=== PATIENT | female | born 1960 | race Caucasian/White ===

== ENCOUNTER 2019-10-20 01:17 | Emergency (ER) | payer OTHER ==
[2019-10-20] MEDS ORDERED: POLYMYXIN B-TRIMETHOPRIM SULF (10,000-1) OPHTH DROPS 10 ML BTL LEFT EYE STA (01:40)
[2019-10-20] MEDS ORDERED: PROPARACAINE 0.5% OPHTH DROPS 15 ML BTL LEFT EYE STA (01:40)
[2019-10-20] MEDS ORDERED: MORPHINE SULFATE 4 MG/ML SYRINGE IVP STA (01:41)
[2019-10-20] MEDS ORDERED: KETOROLAC 30 MG/ML 1 ML VIAL IVP STA (01:41)
[2019-10-20] MEDS ORDERED: AMPICILLIN-SULBACTAM 3 GM in SODIUM CHLORIDE 0.9% 100 ML IVPB STA (01:41)
[2019-10-20] MEDS ORDERED: DEXAMETHASONE SOD PHOSPHATE 10 MG/ML 1 ML VIAL IV STA (01:41)
[2019-10-20] MEDS ORDERED: SODIUM CHLORIDE 0.9% 1,000 ML IV STA (01:42)
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
[2019-10-20 02:12] LABS: Basophils % (A) 0 %; Eosinophils # (A) 0.2 k/uL (0-0.7); Eosinophils % (A) 2 %; HCT 38.1 % (34.0-46.0); HGB 12.3 gm/dL (11.4-16.0); Lymphocytes # (A) 3.2 k/uL (1.0-4.8); Lymphocytes % (A) 31 %; MCH 29.8 pg (25.0-35.0); MCHC 32.4 g/dL (31.0-37.0); MCV 92.1 fL (80.0-100.0); Mean Platelet Volume 6.6; Monocytes # (A) 0.6 k/uL (0-1.0); Monocytes % (A) 6 %; Neutrophils % (A) 59 %; Platelet Count 433 k/uL (150-450); RBC 4.13 m/uL (3.80-5.40); RDW 13.4 % (11.5-15.5); WBC 10.2 k/uL (3.8-10.6)
[2019-10-20 02:15] VITALS: BP 181/99; PULSE 95; RESP 18; TEMP 98.8
[2019-10-20 02:21] LABS: African American GFR (CKD) >90 (>60 ml/min/1.73 sqM); Anion Gap 9 mmol/L; Blood Urea Nitrogen 20 mg/dL (7-17); Calcium 9.9 mg/dL (8.4-10.2); Carbon Dioxide 26 mmol/L (22-30); Chloride 102 mmol/L (98-107); Glucose 99 mg/dL (74-99); Magnesium 1.7 mg/dL (1.6-2.3); Non-African American GFR(CKD) >90 (>60 ml/min/1.73 sqM); Phosphorus 5.1 mg/dL (2.5-4.5); Sodium 137 mmol/L (137-145)
--- NOTE | 2019-10-20 03:20 | CT ---
EXAMINATION TYPE: CT orbits w con DATE OF EXAM: 10/20/2019 COMPARISON: None HISTORY: left eye swelling CT DLP: 264.7 mGycm Automated exposure control for dose reduction was used. CONTRAST: Performed with IV Contrast, patient injected with 100mL mL of Isovue 300. There is extensive left side periorbital soft tissue swelling. There is no evidence of retro-orbital mass. The globes are symmetric. The orbital margins are intact. There is no evidence of a blowout fra cture. Nasal bone is intact. I see no focal bony destructive process. The zygomatic arches appear nor mal. The maxilla is intact. The temporal bones appear intact. There is normal aeration of the mastoid sinuses. I see no pathologic enhancement. IMPRESSION: Significant left side periorbital preseptal edema. No retro-orbital mass. No fracture seen.
[2019-10-20] MEDS ORDERED: AMOXIC-POT CLAV 875MG STARTER PACK 2 TAB BTL PO STA (04:08)
[2019-10-20] MEDS ORDERED: AMOXIC-POT CLAV 875-125MG 1 EACH TAB PO STA (04:08)
[2019-10-20] MEDS ORDERED: ACET/COD 300 MG/30 MG STARTER PACK 6 TAB BTL PO STA (04:09)
== END 2019-10-20 04:48 | disposition home or self-care (01) ==
LOC: EC 01:17
DX: L03.213 Periorbital cellulitis (principal); F17.200 Nicotine dependence, unspecified, uncomplicated
CPT/HCPCS: 36415; 80048; 83735; 84100; 85025; 87040; 70481; 99284; 96365; 96375 ×3; 96361 ×2; J2270; J1100; J1885; J0295; Q9967

== ENCOUNTER 2019-10-21 03:05 | Inpatient (IN) | payer OTHER ==
[2019-10-21] MEDS ORDERED: DEXAMETHASONE SOD PHOSPHATE 10 MG/ML 1 ML VIAL ONE (04:00)
[2019-10-21] MEDS ORDERED: MORPHINE SULFATE 4 MG/ML SYRINGE ONE (04:00)
[2019-10-21] MEDS ORDERED: KETOROLAC 30 MG/ML 1 ML VIAL ONE (04:00)
[2019-10-21] MEDS ORDERED: AMPICILLIN-SULBACTAM 3 GM in SODIUM CHLORIDE 0.9% 100 ML IVPB ONE (05:15)
[2019-10-21 05:32] LABS: Basophils # (A) 0.1 k/uL (0-0.2); Basophils % (A) 0 %; Eosinophils # (A) 0.1 k/uL (0-0.7); Eosinophils % (A) 1 %; HCT 37.1 % (34.0-46.0); HGB 12.1 gm/dL (11.4-16.0); Lymphocytes # (A) 2.7 k/uL (1.0-4.8); Lymphocytes % (A) 21 %; MCH 29.5 pg (25.0-35.0); MCHC 32.5 g/dL (31.0-37.0); MCV 90.7 fL (80.0-100.0); Mean Platelet Volume 6.6; Monocytes # (A) 0.6 k/uL (0-1.0); Monocytes % (A) 5 %; Neutrophils # (A) 9.2 k/uL (1.3-7.7); Neutrophils % (A) 72 %; Platelet Count 403 k/uL (150-450); RBC 4.09 m/uL (3.80-5.40); RDW 13.5 % (11.5-15.5); WBC 12.8 k/uL (3.8-10.6)
[2019-10-21 05:49] LABS: ALT 22 U/L (4-34); AST 20 U/L (14-36); African American GFR (CKD) >90 (>60 ml/min/1.73 sqM); Albumin 4.5 g/dL (3.5-5.0); Alkaline Phosphatase 84 U/L (38-126); Anion Gap 9 mmol/L; Blood Urea Nitrogen 27 mg/dL (7-17); Carbon Dioxide 26 mmol/L (22-30); Chloride 104 mmol/L (98-107); Glucose 106 mg/dL (74-99); Magnesium 1.9 mg/dL (1.6-2.3); Non-African American GFR(CKD) 79 (>60 ml/min/1.73 sqM); Phosphorus 3.5 mg/dL (2.5-4.5); Potassium 3.6 mmol/L (3.5-5.1); Sodium 139 mmol/L (137-145); Total Bilirubin 0.2 mg/dL (0.2-1.3); Total Protein 7.2 g/dL (6.3-8.2)
[2019-10-21] MEDS ORDERED: AMPICILLIN-SULBACTAM 3 GM in SODIUM CHLORIDE 0.9% 100 ML IVPB SCH ×2 (08:00→16:00)
[2019-10-21] MEDS ORDERED: CYCLOBENZAPRINE 10 MG TAB PO PRN (09:58)
[2019-10-21] MEDS ORDERED: IBUPROFEN 400 MG TAB PO PRN (09:58)
[2019-10-21] MEDS ORDERED: VANCOMYCIN IV PER PHARMACY 1 EACH MISC MISCELLANE PRN (09:59)
[2019-10-21] MEDS: amLODIPine 5 MG TAB PO SCH (11:11)
[2019-10-21] MEDS ORDERED: buPROPion XL 300 MG TAB.ER.24H PO STA (11:14)
[2019-10-21] MEDS: METHYLPHENIDATE HCL 10 MG TAB PO SCH ×2 (11:53→16:49)
[2019-10-21] MEDS: VANCOMYCIN 1,500 MG in SODIUM CHLORIDE 0.9% 250 ML IVPB SCH (11:53)
--- NOTE | 2019-10-21 13:19 | P.HPIM ---
History of Present Illness 59-year-old female came in with complaints of edema of the left side was seen in the ER in ER yesterday and was discharged on Augmentin comes back again with the same complaints of worsening edema and redness in the left by because of which patient was admitted , patient had a computed tomography scan of the orbits which did not show any post-septal extension patient has preseptal edema. Patient was started on Vanco mycin patient denied any fever chills. Patient had history of brain lesions which are being evaluated as an outpatient with the MRIs. Patient is also complaining of retrograde amnesia, she lives by herself and she believes she is pretty much being dependent on IADLs Review of Systems REVIEW OF SYSTEMS: CONSTITUTIONAL: No fever, no malaise, no fatigue. HEENT: No recent visual problems or hearing problems. Denied any sore throat. CARDIOVASCULAR: No chest pain, orthopnea, PND, no palpitations, no syncope. PULMONARY: No shortness of breath, no cough, no hemoptysis. GASTROINTESTINAL: No diarrhea, no nausea, no vomiting, no abdominal pain. NEUROLOGICAL: No headaches, no weakness, no numbness. HEMATOLOGICAL: Denies any bleeding or petechiae. GENITOURINARY: Denies any burning micturition, frequency, or urgency. MUSCULOSKELETAL/RHEUMATOLOGICAL: Denies any joint pain, swelling, or any muscle pain. ENDOCRINE: Denies any polyuria or polydipsia. The rest of the 14-point review of systems is negative. Past Medical History Past Medical History: Coronary Artery Disease (CAD), Hypertension Additional Past Medical History / Comment(s): depression, brain lesions History of Any Multi-Drug Resistant Organisms: None Reported Past Surgical History: Hysterectomy, Orthopedic Surgery Past Psychological History: Depression Smoking Status: Current every day smoker Past Alcohol Use History: None Reported Past Drug Use History: None Reported - Past Family History Father Family Medical History: AICD/Pacemaker, Cancer, Coronary Artery Disease (CAD), Diabetes Mellitus Additional Family Medical History / Comment(s): kidney cancer. passed at 76 years old Mother Family Medical History: Cancer, Coronary Artery Disease (CAD) Additional Family Medical History / Comment(s): liver cancer. passed at 84. Medications and Allergies Home Medications Medication Instructions Recorded Confirmed Type Amoxic-Pot Clav 875-125Mg 1 tab PO Q12HR #20 tablet 10/20/19 10/21/19 Rx [Augmentin 235125] Amantadine HCl [Amantadine] 100 mg PO BID 10/21/19 10/21/19 History Zrdjlib-Iawm-Wmxi [id number] 2 tab PO BID 10/21/19 10/21/19 History [Excedrin] Bacitracin/Polymyxin B Sulfate 1 - 2 drop LEFT EYE QID 10/21/19 10/21/19 History [Polysporin Ointment] Cyclobenzaprine [Flexeril] 10 mg PO TID PRN 10/21/19 10/21/19 History DULoxetine HCL [Cymbalta] 120 mg PO HS 10/21/19 10/21/19 History FLUoxetine HCL [PROzac] 10 mg PO DAILY 10/21/19 10/21/19 History Ibuprofen 400 mg PO BID PRN 10/21/19 10/21/19 History Methylphenidate HCl 40 mg PO BID 10/21/19 10/21/19 History Omeprazole [PriLOSEC] 20 mg PO DAILY 10/21/19 10/21/19 History amLODIPine [Norvasc] 5 mg PO DAILY 10/21/19 10/21/19 History buPROPion XL [Wellbutrin Xl] 300 mg PO DAILY 10/21/19 10/21/19 History Allergies Allergy/AdvReac Type Severity Reaction Status Date / Time No Known Allergies Allergy Verified 10/21/19 08:58 Physical Exam Vitals: Vital Signs Temp Pulse Resp BP Pulse Ox 10/21/19 07:50 97.9 F 89 18 171/95 96 Intake and Output 10/20/19 10/21/19 10/21/19 22:59 06:59 14:59 Intake Total 220 Balance 220 Intake: Oral 220 Other: Weight 88.6 kg PHYSICAL EXAMINATION: GENERAL: The patient is alert and oriented x3, not in any acute distress. Well developed, well nourished. HEENT: Pupils are round and equally reacting to light. EOMI. No scleral icterus. No conjunctival pallor. Normocephalic, atraumatic. No pharyngeal erythema. No thyromegaly. Left the eye is swollen with a swollen conjunctiva and possible mild conjunctival and subconjunctival hemorrhage significant redness around the eye with local is of temperature. CARDIOVASCULAR: S1 and S2 present. No murmurs, rubs, or gallops. PULMONARY: Chest is clear to auscultation, no wheezing or crackles. ABDOMEN: Soft, nontender, nondistended, normoactive bowel sounds. No palpable organomegaly. MUSCULOSKELETAL: No joint swelling or deformity. EXTREMITIES: No cyanosis, clubbing, or pedal edema. NEUROLOGICAL: Gross neurological examination did not reveal any focal deficits. SKIN: No rashes. Results CBC & Chem 7: 10/21/19 04:00 10/21/19 04:00 Labs: Abnormal Lab Results - Last 24 Hours (Table) 10/21/19 10/21/19 Range/Units 04:00 04:00 WBC 12.8 H (3.8-10.6) k/uL Neutrophils # 9.2 H (1.3-7.7) k/uL BUN 27 H (7-17) mg/dL Glucose 106 H (74-99) mg/dL Thrombosis Risk Factor Assmnt - Choose All That Apply Each Factor Represents 1 point: Age 41-60 years, Obesity (BMI >25) Other Risk Factors: No Other congenital or acquired thrombophilia - If yes, enter type in comment: No Thrombosis Risk Factor Assessment Total Risk Factor Score: 2 Thrombosis Risk Factor Assessment Level: Low Risk Assessment and Plan Plan: -Orbital cellulitis preseptal still lightest: patient will be started on vancomycin. Unasyn will be discontinued. Infectious disease will be consulted patient does have some pain with the movement of the left eye although CAT scan did not show any post-septal extension. -Symptoms of retrograde amnesia: Speech therapy will be consulted for mini cog test. -Coronary artery disease -TIAs as per the patient in the past -Hypertension -Depression for this patient will be resumed on her home medications -Nicotine abuse: Counseling was provided -DVT prophylaxis early ambulation
[2019-10-21] MEDS: KETOROLAC 30 MG/ML 1 ML VIAL IVP PRN ×2 (13:31→21:27)
[2019-10-21] MEDS: ASPIRIN-ACET-CAFF 250-250-65MG 1 EACH TAB PO PRN (19:09)
[2019-10-21] MEDS ORDERED: ASPIRIN-ACET-CAFF 250-250-65MG 1 EACH TAB PO SCH (21:00)
[2019-10-21] MEDS: DULoxetine HCL 60 MG CAPSULE.DR PO SCH (21:28)
[2019-10-21] MEDS: AMANTADINE HCL 100 MG CAP PO SCH (21:28)
--- NOTE | 2019-10-21 22:17 | P.CONS ---
History of Present Illness - Reason for Consult Consult date: 10/21/19 left preseptal cellulitis Requesting physician: Petra Mohan - Chief Complaint left eye pain and redness x 3 days - History of Present Illness Patient is a 59-year female presenting to the ER at [facility] yesterday with chief complaints of left eye pain swelling and redness for 2 days patient denies having history of any trauma the left leg becoming swollen and red and has gradually progressed patient apparently has been taking doxycycline outpatient setting without any improvement denies high-grade fever or chills her main symptom needs to be pain has been sharp dull aching almost 7- 8 out of 10 with some relief with the pain medication that she received the ER patient was evaluated by the ER physician she did have a CT of the orbits which was significant left-sided periorbital preseptal edema no retro-orbital mass and no fracture seen patient was discharged home on oral Augmentin with the patient presented back with worsening of her symptom and no relief with oral Augmentin patient has been admitted to hospital she was started on vancomycin and Unasyn infectious was consulted for further management of antibiotic therapy patient admission so far has been afebrile she did have a white count of 12.8 with a left shift creatinine has been normal blood cultures obtained which are currently pending. Patient denies significant blurriness of her vision or pain on movement of the eyeball. Review of Systems Positive point has been mentioned in HPI rest of the systems are negative Past Medical History Past Medical History: Coronary Artery Disease (CAD), Hypertension Additional Past Medical History / Comment(s): depression, brain lesions History of Any Multi-Drug Resistant Organisms: None Reported Past Surgical History: Hysterectomy, Orthopedic Surgery Past Psychological History: Depression Smoking Status: Current every day smoker Past Alcohol Use History: None Reported Past Drug Use History: None Reported - Past Family History Father Family Medical History: AICD/Pacemaker, Cancer, Coronary Artery Disease (CAD), Diabetes Mellitus Additional Family Medical History / Comment(s): kidney cancer. passed at 76 years old Mother Family Medical History: Cancer, Coronary Artery Disease (CAD) Additional Family Medical History / Comment(s): liver cancer. passed at 84. Medications and Allergies Home Medications Medication Instructions Recorded Confirmed Type Amoxic-Pot Clav 875-125Mg 1 tab PO Q12HR #20 tablet 10/20/19 10/21/19 Rx [Augmentin 875125] Amantadine HCl [Amantadine] 100 mg PO BID 10/21/19 10/21/19 History Wuyrrvh-Ntfc-Vkvl [id number] 2 tab PO BID 10/21/19 10/21/19 History [Excedrin] Bacitracin/Polymyxin B Sulfate 1 - 2 drop LEFT EYE QID 10/21/19 10/21/19 History [Polysporin Ointment] Cyclobenzaprine [Flexeril] 10 mg PO TID PRN 10/21/19 10/21/19 History DULoxetine HCL [Cymbalta] 120 mg PO HS 10/21/19 10/21/19 History FLUoxetine HCL [PROzac] 10 mg PO DAILY 10/21/19 10/21/19 History Ibuprofen 400 mg PO BID PRN 10/21/19 10/21/19 History Methylphenidate HCl 40 mg PO BID 10/21/19 10/21/19 History Omeprazole [PriLOSEC] 20 mg PO DAILY 10/21/19 10/21/19 History amLODIPine [Norvasc] 5 mg PO DAILY 10/21/19 10/21/19 History buPROPion XL [Wellbutrin Xl] 300 mg PO DAILY 10/21/19 10/21/19 History Allergies Allergy/AdvReac Type Severity Reaction Status Date / Time No Known Allergies Allergy Verified 10/21/19 08:58 Physical Exam Vitals: Vital Signs Temp Pulse Resp BP Pulse Ox 10/21/19 15:17 98.2 F 95 14 168/92 97 10/21/19 07:50 97.9 F 89 18 171/95 96 Intake and Output 10/21/19 10/21/19 10/21/19 06:59 14:59 22:59 Intake Total 320 Balance 320 Intake: Oral 320 Other: # Voids 2 Weight 88.6 kg GENERAL DESCRIPTION: Middle-aged female lying in bed, no distress. No tachypnea or accessory muscle of respiration use. HEENT: Left eye did have swelling with periorbital redness and conjunctival redness. Oral mucous membrane is dry. NECK: Trachea central, no thyromegaly. LUNGS: Unlabored breathing. Clear to auscultation anteriorly. No wheeze or crackle. HEART: S1, S2, regular rate and rhythm. ABDOMEN: Soft, no tenderness , guarding or rigidity EXTREMITIES: No edema of feet. SKIN: No rash, no masses palpable. NEUROLOGICAL: The patient is awake, alert, oriented x3, mood and affect normal. Results CBC & Chem 7: 10/21/19 04:00 10/21/19 04:00 Labs: Abnormal Lab Results - Last 24 Hours (Table) 10/21/19 10/21/19 Range/Units 04:00 04:00 WBC 12.8 H (3.8-10.6) k/uL Neutrophils # 9.2 H (1.3-7.7) k/uL BUN 27 H (7-17) mg/dL Glucose 106 H (74-99) mg/dL Assessment and Plan Assessment: patient presented hospital with left periorbital pain swelling redness in this patient who did have a CT suggestive of preseptal cellulitis with no retro- orbital extension likely from gram-positive skin paulo such as staph and strep failing outpatient oral doxycycline as well as Augmentin therapy (1) Preseptal cellulitis of left eye Current Visit: No Status: Acute Code(s): L03.213 - PERIORBITAL CELLULITIS SNOMED Code(s): 495845694 Plan: 1-vancomycin pharmacy to dose her with a target trough of 15 while watching her kidney function and Vanco trough closely. 2-discontinue Unasyn 3-await ophthalmology evaluation We will follow on clinical condition and cultures to further adjust medication if needed Thank you for this consultation we will follow the patient along with you Time with Patient: Greater than 30
[2019-10-22] MEDS: VANCOMYCIN 1,500 MG in SODIUM CHLORIDE 0.9% 250 ML IVPB SCH ×3 (00:06→22:47)
[2019-10-22] MEDS: KETOROLAC 30 MG/ML 1 ML VIAL IVP PRN ×4 (04:42→23:25)
[2019-10-22] MEDS: METHYLPHENIDATE HCL 10 MG TAB PO SCH ×2 (05:15→14:31)
[2019-10-22] MEDS: AMANTADINE HCL 100 MG CAP PO SCH ×2 (07:59→20:49)
[2019-10-22] MEDS: buPROPion XL 300 MG TAB.ER.24H PO SCH (07:59)
[2019-10-22] MEDS: PANTOPRAZOLE 40 MG TABLET PO SCH (07:59)
[2019-10-22] MEDS: amLODIPine 5 MG TAB PO SCH (07:59)
[2019-10-22 08:00] LABS: African American GFR (CKD) >90 (>60 ml/min/1.73 sqM); Non-African American GFR(CKD) >90 (>60 ml/min/1.73 sqM)
--- NOTE | 2019-10-22 10:54 | CONS ---
CONSULTATION DATE OF SERVICE: 10/22/2019. TIME: 8:30 am HISTORY: This is a 59-year-old white female who presented to the hospital initially complaining of swelling of the left eye with pain and redness for the previous 2 days. The patient was previously taking doxycycline without any improvement of her eye swelling. The patient was seen in the emergency room and received a CT scan of the orbits, which showed the presence of left-sided preseptal cellulitis and preseptal edema; however, no retrobulbar inflammation was noted and the CT scan of the orbits was otherwise negative. The patient was sent home with a prescription of oral Augmentin and eventually presented back with worsening symptoms and complained of receiving no relief from her Augmentin. She was ultimately admitted to the hospital and started on IV vancomycin and Unasyn. The patient states that since admission her eye swelling has subsided significantly and she is looking forward to discharge soon. PHYSICAL EXAM: Visual acuity without correction measured 20/40 OU. The pupils were equal, reactive to light. There was no afferent defect. Extraocular movements were full in all gaze positions. There was no evidence of diplopia in any gaze position. On penlight exam, the left periorbital region exhibited moderate swelling and erythema. The conjunctiva on the left side showed 3+ injection with chemosis evident as well. Both corneas were clear. The anterior chambers were quiet and the remainder of the ophthalmic exam was otherwise unremarkable. 1. Preseptal cellulitis, left side. This patient appears to be improving significantly since the IV antibiotics have started and there is no evidence of retrobulbar involvement of this infection at this time. I would continue her on the IV and eventual discharge on oral according to Infectious Disease. I will be happy to see her in my office upon discharge from the facility. MMODL / IJN: [id number] /
--- NOTE | 2019-10-22 14:10 | PN ---
PROGRESS NOTE DATE OF SERVICE: 10/22/2019 REASON FOR FOLLOWUP: Left preseptal cellulitis. INTERVAL HISTORY: The patient is currently afebrile. She is feeling slightly better. The left periorbital pain and swelling has improved. No chest pain, shortness of breath or cough. No abdominal pain or diarrhea. PHYSICAL EXAMINATION: Blood pressure 152/82 with a pulse of 73, temperature 98.2. She is 93% on room air. General description is a middle-aged female up in the bed in no distress. HEENT: Examination left periorbital swelling, redness improved. LUNGS: Unlabored breathing, clear to auscultation anteriorly. HEART: S1, S2. Regular rate and rhythm. ABDOMEN: Soft, no tenderness. LABS: Creatinine 0.63. Blood culture has been negative. DIAGNOSTIC IMPRESSION AND PLAN: Patient with left preseptal cellulitis, possibly related to gram-positive skin paulo such as MRSA, failing outpatient oral Augmentin and doxycycline. Will keep the patient on IV vancomycin for another 24-48 hours, once clinically improved, we may be able to transition to oral doxycycline. Continue supportive care. MMODL / IJN: [id number] /
--- NOTE | 2019-10-22 14:17 | P.PN ---
Subjective Progress Note Date: 10/22/19 Principal diagnosis: 59-year-old female came in with complaints of edema of the left side was seen in the ER in ER yesterday and was discharged on Augmentin comes back again with the same complaints of worsening edema and redness in the left by because of which patient was admitted , patient had a computed tomography scan of the orbits which did not show any post-septal extension patient has preseptal edema. Patient was started on Vancomycin patient denied any fever chills. Patient had history of brain lesions which are being evaluated as an outpatient with the MRIs. Patient is also complaining of retrograde amnesia, she lives by herself and she believes she is pretty much being dependent on IADLs 10/22/2019 Patient is seen and evaluated in follow-up today sleeping but easily arousable. Patient was seen and evaluated by ophthalmology recommending continued antibi otics per infectious disease recommendations and outpatient follow-up in his office once discharged. Disease is following and patient remains on vancomycin at this time. No acute overnight issues. Currently patient denies any chest pain, shortness of breath, or palpitations. Is afebrile. No reports of nausea or vomiting and patient is tolerating diet. Edema and erythema of the left orbital area has improved. She denies any visual disturbance at this time. Objective - Vital Signs Vital signs: Vital Signs Temp 98.2 F 10/22/19 07:05 Pulse 76 10/22/19 08:00 Resp 16 10/22/19 08:00 BP 152/82 10/22/19 07:05 Pulse Ox 93 L 10/22/19 07:05 Intake & Output 10/21/19 10/22/19 10/22/19 18:59 06:59 18:59 Intake Total 457 Balance 457 Weight 88.6 kg Intake: Oral 457 Other: Voiding Method Toilet Toilet # Voids 2 - Exam GENERAL: The patient is alert and oriented x3, not in any acute distress. Well developed, well nourished. HEENT: Pupils are round and equally reacting to light. EOMI. No scleral icterus. No conjunctival pallor. Normocephalic, atraumatic. No pharyngeal erythema. No thyromegaly. Left the eye is swollen with a swollen conjunctiva and possible mild conjunctival and subconjunctival hemorrhage significant redness around the eye with localization of temperature. Erythema and swelling of the left orbital area has improved from yesterday. CARDIOVASCULAR: S1 and S2 present. No murmurs, rubs, or gallops. PULMONARY: Chest is clear to auscultation, no wheezing or crackles. ABDOMEN: Soft, nontender, nondistended, normoactive bowel sounds. No palpable organomegaly. MUSCULOSKELETAL: No joint swelling or deformity. EXTREMITIES: No cyanosis, clubbing, or pedal edema. NEUROLOGICAL: Gross neurological examination did not reveal any focal deficits. SKIN: No rashes. - Labs CBC & Chem 7: 10/21/19 04:00 10/22/19 06:40 Labs: Microbiology - Last 24 Hours (Table) 10/21/19 04:00 Blood Culture - Preliminary Blood No Growth after 24 hours Assessment and Plan Assessment: -Orbital cellulitis preseptal: Patient remains on vancomycin. Infectious disease following. Blood cultures remain negative thus far. Dr. Bianchi evaluated the patient recommending outpatient follow-up in his office once discharged -Symptoms of retrograde amnesia: Speech therapy will be consulted for mini cog test. Patient was seen and evaluated by speech therapy and scored a 30 out of 30 on the mini check testing -Coronary artery disease -TIAs as per the patient in the past -Hypertension -Depression for this patient will be resumed on her home medications -Nicotine abuse: Counseling was provided -DVT prophylaxis early ambulation
[2019-10-22] MEDS: DULoxetine HCL 60 MG CAPSULE.DR PO SCH (20:49)
[2019-10-23] MEDS: METHYLPHENIDATE HCL 10 MG TAB PO SCH ×2 (05:59→14:02)
[2019-10-23] MEDS: AMANTADINE HCL 100 MG CAP PO SCH ×2 (08:30→21:29)
[2019-10-23] MEDS: PANTOPRAZOLE 40 MG TABLET PO SCH (08:30)
[2019-10-23] MEDS: buPROPion XL 300 MG TAB.ER.24H PO SCH (08:30)
[2019-10-23] MEDS: KETOROLAC 30 MG/ML 1 ML VIAL IVP PRN ×3 (08:30→23:17)
[2019-10-23] MEDS: amLODIPine 5 MG TAB PO SCH (08:30)
[2019-10-23] MEDS ORDERED: VANCOMYCIN TROUGH DUE 1 EACH MISC MISCELLANE ONE (11:00)
[2019-10-23 11:33] LABS: African American GFR (CKD) >90 (>60 ml/min/1.73 sqM); Non-African American GFR(CKD) >90 (>60 ml/min/1.73 sqM)
[2019-10-23] MEDS: VANCOMYCIN 1,500 MG in SODIUM CHLORIDE 0.9% 250 ML IVPB SCH ×2 (12:01→23:19)
--- NOTE | 2019-10-23 13:50 | P.PN ---
Subjective 59-year-old female came in with complaints of edema of the left side was seen in the ER in ER yesterday and was discharged on Augmentin comes back again with the same complaints of worsening edema and redness in the left by because of which patient was admitted , patient had a computed tomography scan of the orbits which did not show any post-septal extension patient has preseptal edema. Patient was started on Vancomycin patient denied any fever chills. Patient had history of brain lesions which are being evaluated as an outpatient with the MRIs. Patient is also complaining of retrograde amnesia, she lives by herself and she believes she is pretty much being dependent on IADLs 10/22/2019 Patient is seen and evaluated in follow-up today sleeping but easily arousable. Patient was seen and evaluated by ophthalmology recommending continued antibiotics per infectious disease recommendations and outpatient follow-up in his office once discharged. Disease is following and patient remains on vancomycin at this time. No acute overnight issues. Currently patient denies any chest pain, shortness of breath, or palpitations. Is afebrile. No reports of nausea or vomiting and patient is tolerating diet. Edema and erythema of the left orbital area has improved. She denies any visual disturbance at this time. 10/23/2019 Patient was admitted for left preseptal cellulitis around her left eye, her infection is improving with less redness, she still have some fullness in the upper eyelids and draped I. No blurred vision. Patient has been evaluated by roll winder and infectious disease or currently she is on IV vancomycin No other new complaints, patient feels comfortable her infection is coming down however she was stressed in the hospital for now. She is hemodynamically stable and creatinine is within normal limits. Objective - Vital Signs Vital signs: Vital Signs Temp 98.3 F 10/23/19 08:25 Pulse 79 10/23/19 08:25 Resp 16 10/23/19 08:25 BP 145/88 10/23/19 08:25 Pulse Ox 98 10/23/19 08:25 Intake & Output 10/22/19 10/23/19 10/23/19 18:59 06:59 18:59 Intake Total 450 296 Output Total 1200 Balance -1200 450 296 Intake: Oral 450 296 Output: Stool 1200 Other: Voiding Method Toilet # Voids 2 2 - Exam GENERAL: The patient is alert and oriented x3, not in any acute distress. Well developed, well nourished. -HEENT: Pupils are round and equally reacting to light. EOMI. No scleral icterus. No conjunctival pallor. Normocephalic, atraumatic. No pharyngeal erythema. No thyromegaly. Left the eye is swollen with a swollen conjunctiva and possible mild conjunctival and subconjunctival hemorrhage significant redness around the eye with localization of temperature. Erythema and swelling of the left orbital area, improving CARDIOVASCULAR: S1 and S2 present. No murmurs, rubs, or gallops. PULMONARY: Chest is clear to auscultation, no wheezing or crackles. ABDOMEN: Soft, nontender, nondistended, normoactive bowel sounds. No palpable organomegaly. MUSCULOSKELETAL: No joint swelling or deformity. EXTREMITIES: No cyanosis, clubbing, or pedal edema. NEUROLOGICAL: Gross neurological examination did not reveal any focal deficits. SKIN: No rashes. - Labs CBC & Chem 7: 10/21/19 04:00 10/23/19 11:08 Labs: Microbiology - Last 24 Hours (Table) 10/21/19 04:00 Blood Culture - Preliminary Blood No Growth after 48 hours 10/22/19 14:00 Gram Stain - Preliminary Eye - Left Wound Culture - Preliminary Assessment and Plan Assessment: -Orbital cellulitis preseptal: Patient remains on vancomycin. Infectious disea se following. Blood cultures remain negative thus far. Dr. Bianchi evaluated the patient recommending outpatient follow-up in his office once discharged -Coronary artery disease -TIAs as per the patient in the past -Hypertension -Depression for this patient will be resumed on her home medications -Nicotine abuse: Counseling was provided -DVT prophylaxis early ambulation
--- NOTE | 2019-10-23 17:38 | PN ---
PROGRESS NOTE DATE OF SERVICE: 10/23/2019 REASON FOR FOLLOWUP: Left preseptal cellulitis. INTERVAL HISTORY: The patient is currently afebrile. The patient has some purulent drainage from the left lateral eyebrow area which has been cultured. Overall pain and discomfort has improved. Denies any chest pain or cough. No abdominal pain or diarrhea. PHYSICAL EXAMINATION: Blood pressure 145/88 with a pulse of 79, temperature 98.3. She is 98% on room air. General description: The patient is a middle-aged female up in the bed in no distress. HEENT examination: Left periorbital swelling, has slightly decreased, no drainage. LUNGS unlabored breathing. Clear to auscultation anteriorly. HEART S1, S2. Regular rate and rhythm. ABDOMEN: Soft. No tenderness. LABS: Creatinine is normal. Vancomycin trough slightly on the low side. Cultures currently pending. DIAGNOSTIC IMPRESSION AND PLAN: Patient with left preseptal cellulitis with some purulent drainage yesterday that has been cultured, we will wait for them to finalize and repeat blood work tomorrow. Continue the vancomycin, dose to be adjusted up to keep the trough around 15 and monitor clinical course closely. MMODL / IJN: [id number] /
[2019-10-23] MEDS: DULoxetine HCL 60 MG CAPSULE.DR PO SCH (21:27)
[2019-10-24] MEDS: METHYLPHENIDATE HCL 10 MG TAB PO SCH ×2 (05:41→13:56)
[2019-10-24] MEDS: PANTOPRAZOLE 40 MG TABLET PO SCH (05:42)
[2019-10-24 07:51] LABS: Basophils # (A) 0.1 k/uL (0-0.2); Basophils % (A) 1 %; Eosinophils # (A) 0.2 k/uL (0-0.7); Eosinophils % (A) 3 %; HCT 38.9 % (34.0-46.0); HGB 12.6 gm/dL (11.4-16.0); Lymphocytes # (A) 3.2 k/uL (1.0-4.8); Lymphocytes % (A) 47 %; MCH 29.6 pg (25.0-35.0); MCHC 32.3 g/dL (31.0-37.0); MCV 91.7 fL (80.0-100.0); Mean Platelet Volume 6.4; Monocytes # (A) 0.5 k/uL (0-1.0); Monocytes % (A) 7 %; Neutrophils # (A) 2.7 k/uL (1.3-7.7); Neutrophils % (A) 40 %; Platelet Count 472 k/uL (150-450); RBC 4.24 m/uL (3.80-5.40); RDW 13.3 % (11.5-15.5); WBC 6.7 k/uL (3.8-10.6)
[2019-10-24] MEDS: AMANTADINE HCL 100 MG CAP PO SCH ×2 (07:57→21:05)
[2019-10-24] MEDS: buPROPion XL 300 MG TAB.ER.24H PO SCH (07:57)
[2019-10-24] MEDS: amLODIPine 5 MG TAB PO SCH (07:57)
[2019-10-24 08:15] LABS: African American GFR (CKD) >90 (>60 ml/min/1.73 sqM); Anion Gap 10 mmol/L; Blood Urea Nitrogen 15 mg/dL (7-17); C Reactive Protein 13.2 mg/L (<10.0); Calcium 9.3 mg/dL (8.4-10.2); Carbon Dioxide 27 mmol/L (22-30); Chloride 99 mmol/L (98-107); Glucose 125 mg/dL (74-99); Non-African American GFR(CKD) >90 (>60 ml/min/1.73 sqM); Potassium 3.8 mmol/L (3.5-5.1); Sodium 136 mmol/L (137-145)
[2019-10-24] MEDS: KETOROLAC 30 MG/ML 1 ML VIAL IVP PRN ×2 (11:19→21:08)
[2019-10-24] MEDS: VANCOMYCIN 1,500 MG in SODIUM CHLORIDE 0.9% 250 ML IVPB SCH ×2 (11:20→22:10)
--- NOTE | 2019-10-24 12:37 | P.PN ---
Subjective 59-year-old female came in with complaints of edema of the left side was seen in the ER in ER yesterday and was discharged on Augmentin comes back again with the same complaints of worsening edema and redness in the left by because of which patient was admitted , patient had a computed tomography scan of the orbits which did not show any post-septal extension patient has preseptal edema. Patient was started on Vancomycin patient denied any fever chills. Patient had history of brain lesions which are being evaluated as an outpatient with the MRIs. Patient is also complaining of retrograde amnesia, she lives by herself and she believes she is pretty much being dependent on IADLs 10/22/2019 Patient is seen and evaluated in follow-up today sleeping but easily arousable. Patient was seen and evaluated by ophthalmology recommending continued antibiotics per infectious disease recommendations and outpatient follow-up in his office once discharged. Disease is following and patient remains on vancomycin at this time. No acute overnight issues. Currently patient denies any chest pain, shortness of breath, or palpitations. Is afebrile. No reports of nausea or vomiting and patient is tolerating diet. Edema and erythema of the left orbital area has improved. She denies any visual disturbance at this time. 10/23/2019 Patient was admitted for left preseptal cellulitis around her left eye, her infection is improving with less redness, she still have some fullness in the upper eyelids and draped I. No blurred vision. Patient has been evaluated by oil pump station operator chief and infectious disease or currently she is on IV vancomycin No other new complaints, patient feels comfortable her infection is coming down however she was stressed in the hospital for now. She is hemodynamically stable and creatinine is within normal limits. 10/24/2019 Her left preseptal cellulitis is improving, continue with IV vancomycin. Follow-up culture results Possible discharge in 24-48 hours Objective - Vital Signs Vital signs: Vital Signs Temp 98.1 F 10/24/19 07:00 Pulse 75 10/24/19 07:00 Resp 18 10/24/19 07:00 BP 154/89 10/24/19 07:00 Pulse Ox 95 10/24/19 07:00 Intake & Output 10/23/19 10/24/19 10/24/19 18:59 06:59 18:59 Intake Total 888 118 Output Total 800 Balance 888 -800 118 Intake: Oral 888 118 Output: Stool 800 Other: Voiding Method Toilet Toilet # Voids 1 1 - Exam GENERAL: The patient is alert and oriented x3, not in any acute distress. Well developed, well nourished. -HEENT: Pupils are round and equally reacting to light. EOMI. No scleral icterus. No conjunctival pallor. Normocephalic, atraumatic. No pharyngeal erythema. No thyromegaly. Left the eye is swollen with a swollen conjunctiva and possible mild conjunctival and subconjunctival hemorrhage significant redness around the eye with localization of temperature. Erythema and swelling of the left orbital area, improving CARDIOVASCULAR: S1 and S2 present. No murmurs, rubs, or gallops. PULMONARY: Chest is clear to auscultation, no wheezing or crackles. ABDOMEN: Soft, nontender, nondistended, normoactive bowel sounds. No palpable organomegaly. MUSCULOSKELETAL: No joint swelling or deformity. EXTREMITIES: No cyanosis, clubbing, or pedal edema. NEUROLOGICAL: Gross neurological examination did not reveal any focal deficits. SKIN: No rashes. - Labs CBC & Chem 7: 10/24/19 07:21 10/24/19 07:21 Labs: Abnormal Lab Results - Last 24 Hours (Table) 10/24/19 10/24/19 Range/Units 07:21 07:21 Plt Count 472 H (150-450) k/uL Sodium 136 L (137-145) mmol/L Glucose 125 H (74-99) mg/dL C-Reactive Protein 13.2 H (<10.0) mg/L Microbiology - Last 24 Hours (Table) 10/21/19 04:00 Blood Culture - Preliminary Blood No Growth after 72 hours 10/22/19 14:00 Gram Stain - Preliminary Eye - Left Wound Culture - Preliminary Assessment and Plan Assessment: -Orbital cellulitis preseptal: Patient remains on vancomycin. Infectious disease following. Blood cultures remain negative thus far. Dr. Bianchi evaluate d the patient recommending outpatient follow-up in his office once discharged -Coronary artery disease -TIAs as per the patient in the past -Hypertension -Depression for this patient will be resumed on her home medications -Nicotine abuse: Counseling was provided -DVT prophylaxis early ambulation
[2019-10-24] MEDS: DULoxetine HCL 60 MG CAPSULE.DR PO SCH (21:06)
[2019-10-25] MEDS: ASPIRIN-ACET-CAFF 250-250-65MG 1 EACH TAB PO PRN (00:16)
--- NOTE | 2019-10-25 00:20 | PN ---
PROGRESS NOTE DATE OF SERVICE: 10/24/2019 REASON FOR FOLLOWUP: Left preseptal cellulitis. INTERVAL HISTORY: The patient is currently afebrile. Patient is breathing comfortably. The patient's left periorbital pain and discomfort has improved. Denies having any chest pain or shortness of breath or cough. No abdominal pain or diarrhea. PHYSICAL EXAMINATION: Blood pressure 141/91 with a pulse of 87, temperature 98.3. She is 96% on room air. General description is a middle-aged female up in the chair in no distress. HEENT EXAMINATION: Left periorbital swelling and redness has improved. LUNGS: Unlabored breathing, clear to auscultation. HEART: S1, S2. Regular rate and rhythm. ABDOMEN: Soft, no tenderness. LABS: Hemoglobin is 12.8, white count 6.7. Creatinine 0.66. CRP 13.2. DIAGNOSTIC IMPRESSION AND PLAN: Patient with left preseptal cellulitis. The patient's culture so far negative for resistant pathogen. Patient clinically respond to vancomycin, to continue. Finish therapy with oral antibiotics. May transition to oral tomorrow. Continue supportive care. MMODL / IJN: [id number] /
[2019-10-25] MEDS: METHYLPHENIDATE HCL 10 MG TAB PO SCH (05:59)
[2019-10-25] MEDS: PANTOPRAZOLE 40 MG TABLET PO SCH (06:00)
[2019-10-25 07:38] VITALS: BP 141/85; PULSE 75; RESP 16; TEMP 97.9
[2019-10-25 07:49] LABS: African American GFR (CKD) >90 (>60 ml/min/1.73 sqM); Non-African American GFR(CKD) >90 (>60 ml/min/1.73 sqM)
[2019-10-25] MEDS: AMANTADINE HCL 100 MG CAP PO SCH (07:59)
[2019-10-25] MEDS: amLODIPine 5 MG TAB PO SCH (07:59)
[2019-10-25] MEDS: buPROPion XL 300 MG TAB.ER.24H PO SCH (07:59)
[2019-10-25] MEDS: KETOROLAC 30 MG/ML 1 ML VIAL IVP PRN (08:05)
[2019-10-25] MEDS: VANCOMYCIN 1,500 MG in SODIUM CHLORIDE 0.9% 250 ML IVPB SCH (11:35)
--- NOTE | 2019-10-25 11:50 | P.DS ---
Providers Date of admission: 10/21/19 03:30 Attending physician: Manuel Mcclure Consults: 10/21/19 11:34 Consult Physician Routine Consulting Provider: Nicolle Huffman Consult Reason/Comments: cellulitis of eye Do you want consulting provider notified?: Yes Placement Type Exists?: Yes 10/21/19 13:25 Consult Physician Routine Consulting Provider: King Bianchi Consult Reason/Comments: eye infection Do you want consulting provider notified?: Yes Placement Type Exists?: Yes Primary care physician: Tiffany Garcia [facility] Course: Diagnoses: -Orbital cellulitis, preseptal -Depression for this patient will be resumed on her home medications -Nicotine abuse: Counseling was provided -H/o Coronary artery disease -TIAs as per the patient in the past -Hypertension Hospital course: 59-year-old female came in with complaints of edema of the left side was seen in the ER in ER when day earlier and was discharged on Augmentin comes back again with the same complaints of worsening edema and redness in the left by because of which patient was admitted , patient had a computed tomography scan of the orbits which did not show any post-septal extension patient has preseptal edema. Patient diagnosed with preseptal cellulitis Patient was started on Vancomycin and infectious disease was consulted who followed the patient closely. Patient showed interval improvement and her redness, pain and swelling are significantly improving, no blurred vision. Patient has been evaluated by groundskeeping yardman who recommended to continue with medical management and follow-up as an outpatient. Patient agrees with that appointment made for her with Dr. Bianchi on 11/04 Patient wants to be discharged home Patient will please for discharge by ID and ophthalmology services Problems and management plan were discussed with the patient and he verbalized understanding and acceptance Patient was found stable and can be discharged home however he needs follow-up as an outpatient. Patient was instructed to follow up with PCP Dr. hodges within one week and patient agrees Gen: patient is a AAOx3, no distress On exam: Left eye orbital redness and swelling are significantly improved, less redness in her left eye conjunctiva CVS: S1-S2, RRR, no murmur Lungs: B/L CTA, no wheezing Abdomen: soft, no distention, no tenderness, positive bowel sounds Extremity: no leg edema or induration Time spent more than 35 minutes d Plan - Discharge Summary Discharge Rx Participant: Yes New Discharge Prescriptions: No Action Amoxic-Pot Clav 875-125Mg [Augmentin 875-125] 1 tab PO Q12HR #20 tablet Omeprazole [PriLOSEC] 20 mg PO DAILY Ibuprofen 400 mg PO BID PRN PRN Reason: Pain Emtjgjv-Tfkg-Ymss [id number] [Excedrin] 2 tab PO BID Methylphenidate HCl 40 mg PO BID DULoxetine HCL [Cymbalta] 120 mg PO HS FLUoxetine HCL [PROzac] 10 mg PO DAILY Cyclobenzaprine [Flexeril] 10 mg PO TID PRN PRN Reason: MUSCLE SPASMS buPROPion XL [Wellbutrin Xl] 300 mg PO DAILY amLODIPine [Norvasc] 5 mg PO DAILY Amantadine HCl [Amantadine] 100 mg PO BID Bacitracin/Polymyxin B Sulfate [Polysporin Ointment] 1 - 2 drop LEFT EYE QID Discharge Medication List Amoxic-Pot Clav 875-125Mg [Augmentin 875-125] 1 tab PO Q12HR #20 tablet 10/20/19 [Rx] Amantadine HCl [Amantadine] 100 mg PO BID 10/21/19 [History] Zercuxv-Odjx-Xjvt [id number] [Excedrin] 2 tab PO BID 10/21/19 [History] Bacitracin/Polymyxin B Sulfate [Polysporin Ointment] 1 - 2 drop LEFT EYE QID 10/21/19 [History] Cyclobenzaprine [Flexeril] 10 mg PO TID PRN 10/21/19 [History] DULoxetine HCL [Cymbalta] 120 mg PO HS 10/21/19 [History] FLUoxetine HCL [PROzac] 10 mg PO DAILY 10/21/19 [History] Ibuprofen 400 mg PO BID PRN 10/21/19 [History] Methylphenidate HCl 40 mg PO BID 10/21/19 [History] Omeprazole [PriLOSEC] 20 mg PO DAILY 10/21/19 [History] amLODIPine [Norvasc] 5 mg PO DAILY 10/21/19 [History] buPROPion XL [Wellbutrin Xl] 300 mg PO DAILY 10/21/19 [History] Follow up Appointment(s)/Referral(s): King Bianchi MD [STAFF PHYSICIAN] - 11/05/19 2:00 pm (groundskeeping yardman ) Wilfrid Tovar, [NON-STAFF] - Tiffany Garcia MD [Primary Care Provider] - 11/02/19 1:00 pm Activity/Diet/Wound Care/Special Instructions: Make sure you follow up with your PCP for homecare physical therapy to see you after that appt.
--- NOTE | 2019-10-25 15:30 | PN ---
PROGRESS NOTE DATE OF SERVICE: 10/25/2019 REASON FOR FOLLOWUP: Left preseptal cellulitis. INTERVAL HISTORY: The patient is currently afebrile. The left periorbital pain and swelling has much improved. Denies having any chest pain or cough. No abdominal pain or any diarrhea. PHYSICAL EXAMINATION: Blood pressure 140/85, pulse of 75 temperature 97.9, she is 98% on room air. General description is a middle-aged female up in the chair in no distress. HEENT: Examination, the left periorbital swelling has much improved. LUNGS: Unlabored breathing, clear to auscultation anteriorly. HEART: S1, S2. Regular rate and rhythm. ABDOMEN: Soft, no tenderness. LABS: White count normal 6.7. Culture has been negative so far, blood culture negative. DIAGNOSTIC IMPRESSION AND PLAN: Patient with left preseptal cellulitis in this patient seemed to have shown overall clinical improvement on vancomycin. She has been treated with Bactrim DS one b.i.d. for 10 days and close outpatient followup. MMODL / IJN: [id number] /
== END 2019-10-25 14:37 | disposition home or self-care (01) | DRG 603 ==
LOC: EC 03:05 → 4SSUR 03:30 → EC 05:45
PROVIDERS: ADMIT Hospitalist; ATTEND Hospitalist
DX: L03.213 Periorbital cellulitis (principal); Z11.59 Encounter for screening for other viral diseases; R41.2 Retrograde amnesia; G93.89 Other specified disorders of brain; I25.10 Atherosclerotic heart disease of native coronary artery without angina pectoris; I10 Essential (primary) hypertension; F17.200 Nicotine dependence, unspecified, uncomplicated; F32.9 Major depressive disorder, single episode, unspecified; E66.9 Obesity, unspecified; Z68.32 Body mass index [BMI] 32.0-32.9, adult; Z71.6 Tobacco abuse counseling; Z79.899 Other long term (current) drug therapy; Z79.82 Long term (current) use of aspirin; Z98.890 Other specified postprocedural states; Z83.3 Family history of diabetes mellitus; Z86.73 Personal history of transient ischemic attack (TIA), and cerebral infarction without residual deficits; Z90.710 Acquired absence of both cervix and uterus; Z82.49 Family history of ischemic heart disease and other diseases of the circulatory system; Z80.51 Family history of malignant neoplasm of kidney; Z80.0 Family history of malignant neoplasm of digestive organs
CPT/HCPCS: 36415; 80048; 80053; 80202; 82565; 83735; 84100; 85025; 86140; 87040; 87070; 87205; 87635; 96365; 96375; 99284

== ENCOUNTER 2019-10-29 13:19 | Emergency (ER) | payer OTHER ==
[2019-10-29] MEDS ORDERED: KETOROLAC 30 MG/ML 1 ML VIAL IVP STA (14:02)
--- NOTE | 2019-10-29 14:05 | ED ---
Eye Problem HPI <Joo Castaneda - Last Filed: 10/29/19 15:05> - General Source: patient Mode of arrival: ambulatory Limitations: no limitations <Laura Solis - Last Filed: 10/29/19 15:16> - General Chief complaint: Eye Problems Stated complaint: L eye cellulitis Time Seen by Provider: 10/29/19 13:29 - History of Present Illness Initial comments: Patient is a 59-year-old female presenting to the emergency Department with complaints of swelling of her left eye that started last night. Patient was recently discharged from this hospital on Friday for left eye cellulitis. She is currently on Bactrim. Patient states she has been doing well and feeling improvement until last night. Patient noticed some mild pain on the outside of her left eye and then this morning noticed a pocket of swelling that form there as well. She states her eye also feels itchy. She has been taking Tylenol which has been helping with her discomfort. She states she did call Dr. Bianchi today however he is not in the [place] office so she was unable to visit him. She denies any blurry vision, headache, fever. She has no other complaints at this time. (Laura Solis) - Related Data Home Medications Medication Instructions Recorded Confirmed Amantadine HCl [Amantadine] 100 mg PO BID 10/21/19 10/21/19 Ljjqozg-Urgw-Xdyh [id number] 2 tab PO BID 10/21/19 10/21/19 [Excedrin] Bacitracin/Polymyxin B Sulfate 1 - 2 drop LEFT EYE QID 10/21/19 10/21/19 [Polysporin Ointment] Cyclobenzaprine [Flexeril] 10 mg PO TID PRN 10/21/19 10/21/19 DULoxetine HCL [Cymbalta] 120 mg PO HS 10/21/19 10/21/19 FLUoxetine HCL [PROzac] 10 mg PO DAILY 10/21/19 10/21/19 Methylphenidate HCl 40 mg PO BID 10/21/19 10/21/19 Omeprazole [PriLOSEC] 20 mg PO DAILY 10/21/19 10/21/19 amLODIPine [Norvasc] 5 mg PO DAILY 10/21/19 10/21/19 buPROPion XL [Wellbutrin XL] 300 mg PO DAILY 10/21/19 10/21/19 Previous Rx's Medication Instructions Recorded Sulfamethox-Tmp 800-160Mg [Bactrim 1 tab PO Q12HR #20 tab 10/25/19 DS 800-160 mg] Allergies Allergy/AdvReac Type Severity Reaction Status Date / Time No Known Allergies Allergy Verified 10/29/19 13:26 Review of Systems ROS Other: All systems not noted in ROS Statement are negative. <Joo Castaneda - Last Filed: 10/29/19 15:05> ROS Other: All systems not noted in ROS Statement are negative. <Laura Solis - Last Filed: 10/29/19 15:16> ROS Statement: Those systems with pertinent positive or pertinent negative responses have been documented in the HPI. Past Medical History Past Medical History: Coronary Artery Disease (CAD), Hypertension Additional Past Medical History / Comment(s): depression, brain lesions History of Any Multi-Drug Resistant Organisms: None Reported Past Surgical History: Hysterectomy, Orthopedic Surgery Past Psychological History: Depression Smoking Status: Current every day smoker Past Alcohol Use History: None Reported Past Drug Use History: None Reported - Past Family History Father Family Medical History: AICD/Pacemaker, Cancer, Coronary Artery Disease (CAD), Diabetes Mellitus Additional Family Medical History / Comment(s): kidney cancer. passed at 76 years old Mother Family Medical History: Cancer, Coronary Artery Disease (CAD) Additional Family Medical History / Comment(s): liver cancer. passed at 84. <Laura Solis - Last Filed: 10/29/19 15:16> General Exam Limitations: no limitations <Laura Solis - Last Filed: 10/29/19 15:16> - General Exam Comments Initial Comments: GENERAL: Well-appearing, well-nourished and in no acute distress. HEAD: Atraumatic, normocephalic. EYES: Pupils equal round and reactive to light, extraocular movements intact, sclera anicteric, conjunctiva are normal. Patient has a pocket of swelling on the inner portion of her upper eyelid, lateral aspect. There is no surrounding erythema. ENT: TMs normal, nares patent, oropharynx clear without exudates. Moist mucous membr anes. NECK: Normal range of motion, supple without lymphadenopathy or JVD. LUNGS: Breath sounds clear to auscultation bilaterally and equal. No wheezes rales or rhonchi. HEART: Regular rate and rhythm without murmurs, rubs or gallops. ABDOMEN: Soft, nontender, normoactive bowel sounds. No guarding, no rebound. No masses appreciated. : Deferred EXTREMITIES: Normal range of motion, no pitting or edema. No clubbing or cyanosis. NEUROLOGICAL: Cranial nerves II through XII grossly intact. Normal speech, normal gait. PSYCH: Normal mood, normal affect. SKIN: Warm, Dry, normal turgor, no rashes or lesions noted. (Laura Soils) Course <Joo Castaneda - Last Filed: 10/29/19 15:05> Vital Signs 10/29/19 10/29/19 13:22 15:12 Temperature 99.2 F Pulse Rate 110 H 78 Respiratory 18 17 Rate Blood Pressure 166/93 158/90 O2 Sat by Pulse 98 99 Oximetry - Reevaluation(s) Reevaluation #1: 10/29/19 15:05 Patient was reevaluated by myself, Dr. Castaneda. Patient states she did have cellulitis and recently discharged. Previous admission reviewed. Patient had preseptal cellulitis that has improved. Patient states today and somewhat yeste rday she is having swelling left upper eyelid. Patient does have area of swelling, 1.5 cm left upper eyelid laterally. This is mildly tender. No significant erythema. extraocular muscles intact. Pupils equal round and reactive to light. Case was discussed in detail with Dr. Escobar who does not recommend opening the area. He recommends warm compresses and continuing antibiotics. He can follow up with patient on Friday. We did try to reach Dr. Alves earlier however no call was returned. Dr. Escobar was contacted secondary to him being top distribution executive for the hospital today. (Joo Castaneda) Medical Decision Making - Lab Data Result diagrams: 10/29/19 13:50 10/29/19 13:50 <Joo Castaneda - Last Filed: 10/29/19 15:05> - Lab Data Result diagrams: 10/29/19 13:50 10/29/19 13:50 <Laura Solis - Last Filed: 10/29/19 15:16> - Lab Data Lab Results 10/29/19 10/29/19 10/29/19 Range/Units 13:50 13:50 13:50 WBC 5.4 (3.8-10.6) k/uL RBC 4.44 (3.80-5.40) m/uL Hgb 12.9 (11.4-16.0) gm/dL Hct 40.3 (34.0-46.0) % MCV 90.9 (80.0-100.0) fL MCH 29.1 (25.0-35.0) pg MCHC 32.0 (31.0-37.0) g/dL RDW 13.3 (11.5-15.5) % Plt Count 436 (150-450) k/uL Neutrophils % 52 % Lymphocytes % 38 % Monocytes % 5 % Eosinophils % 2 % Basophils % 1 % Neutrophils # 2.8 (1.3-7.7) k/uL Lymphocytes # 2.1 (1.0-4.8) k/uL Monocytes # 0.3 (0-1.0) k/uL Eosinophils # 0.1 (0-0.7) k/uL Basophils # 0.0 (0-0.2) k/uL Sodium 139 (137-145) mmol/L Potassium 3.9 (3.5-5.1) mmol/L Chloride 103 (98-107) mmol/L Carbon Dioxide 28 (22-30) mmol/L Anion Gap 8 mmol/L BUN 10 (7-17) mg/dL Creatinine 0.70 (0.52-1.04) mg/dL Est GFR (CKD-EPI)AfAm >90 (>60 ml/min/1.73 sqM) Est GFR (CKD-EPI)NonAf >90 (>60 ml/min/1.73 sqM) Glucose 103 H (74-99) mg/dL Plasma Lactic Acid Charles 1.2 (0.7-2.0) mmol/L Calcium 9.8 (8.4-10.2) mg/dL Total Bilirubin 0.3 (0.2-1.3) mg/dL AST 23 (14-36) U/L ALT 26 (4-34) U/L Alkaline Phosphatase 79 (38-126) U/L Total Protein 7.0 (6.3-8.2) g/dL Albumin 4.3 (3.5-5.0) g/dL Disposition <Joo Castaneda - Last Filed: 10/29/19 15:05> Is patient prescribed a controlled substance at d/c from ED?: No <Laura Solis - Last Filed: 10/29/19 15:16> Clinical Impression: Swelling of left upper eyelid Disposition: HOME SELF-CARE Condition: Stable Instructions (If sedation given, give patient instructions): Eye Pain (ED) Additional Instructions: Please return to the Emergency Department if symptoms worsen or any other concerns. Follow-up with ophthalmology as discussed on Friday. Continue with already prescribed Bactrim. Referrals: None,Stated [REFERRING] - 1-2 days Zena Amanda MD [STAFF PHYSICIAN] - 1-2 days
[2019-10-29 14:06] LABS: Basophils % (A) 1 %; Eosinophils # (A) 0.1 k/uL (0-0.7); Eosinophils % (A) 2 %; HCT 40.3 % (34.0-46.0); HGB 12.9 gm/dL (11.4-16.0); Lymphocytes # (A) 2.1 k/uL (1.0-4.8); Lymphocytes % (A) 38 %; MCH 29.1 pg (25.0-35.0); MCV 90.9 fL (80.0-100.0); Mean Platelet Volume 6.6; Monocytes # (A) 0.3 k/uL (0-1.0); Monocytes % (A) 5 %; Neutrophils # (A) 2.8 k/uL (1.3-7.7); Neutrophils % (A) 52 %; Platelet Count 436 k/uL (150-450); RBC 4.44 m/uL (3.80-5.40); RDW 13.3 % (11.5-15.5); WBC 5.4 k/uL (3.8-10.6)
[2019-10-29 14:14] LABS: ALT 26 U/L (4-34); AST 23 U/L (14-36); African American GFR (CKD) >90 (>60 ml/min/1.73 sqM); Albumin 4.3 g/dL (3.5-5.0); Alkaline Phosphatase 79 U/L (38-126); Anion Gap 8 mmol/L; Blood Urea Nitrogen 10 mg/dL (7-17); Calcium 9.8 mg/dL (8.4-10.2); Carbon Dioxide 28 mmol/L (22-30); Chloride 103 mmol/L (98-107); Glucose 103 mg/dL (74-99); Non-African American GFR(CKD) >90 (>60 ml/min/1.73 sqM); Potassium 3.9 mmol/L (3.5-5.1); Sodium 139 mmol/L (137-145); Total Bilirubin 0.3 mg/dL (0.2-1.3)
[2019-10-29 15:14] VITALS: BP 158/90; PULSE 78; RESP 17
[2019-10-29] MEDS ORDERED: Acetaminophen-Codeine 300-30mg TAB PO STA (15:24)
[2019-10-29 15:30] VITALS: TEMP 98.9
== END 2019-10-29 15:27 | disposition home or self-care (01) ==
LOC: EC 13:19
DX: H02.844 Edema of left upper eyelid (principal); I10 Essential (primary) hypertension; F32.9 Major depressive disorder, single episode, unspecified; F17.200 Nicotine dependence, unspecified, uncomplicated; Z79.82 Long term (current) use of aspirin; Z79.899 Other long term (current) drug therapy
CPT/HCPCS: 36415; 80053; 83605; 85025; 87040; 99283; 96374; J1885

== ENCOUNTER → 2020-01-24 | Outpatient (CLI) | payer OTHER ==
--- NOTE | 2020-01-24 20:44 | CT ---
EXAMINATION TYPE: CT orbits wo/w con DATE OF EXAM: 01/24/2020 COMPARISON: CT orbits October 20, 2019. HISTORY: Mass outer corner LT eye. 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 CONTRAST: Performed without and with IV Contrast, patient injected with 100 mL of Isovue 300. FINDINGS: Orbital floors and guardado are intact. Globes are intact bilaterally. Coronal fat is preserved bilatera lly. Rectus muscles are symmetric and within normal limits. There is interval resolution of left pres eptal fluid and fat stranding with residual 1.0 cm thin-walled cyst or cystic lesion along the latera l aspect of the left globe anterior to the left lateral rectus muscle. No suspicious nodularity or en hancement. No bony destruction. Paranasal sinuses remain grossly clear. Mastoid air cells show no suspicious opacification. Visualize d portion of brain parenchyma is unremarkable. IMPRESSION: Persistent 1.0 cm thin-walled cyst or cystic lesion lateral to the left globe, suspect la crimal gland cyst or other benign etiology.
== END | disposition home or self-care (01) ==
LOC: RADCTMAIN 18:54
PROVIDERS: ATTEND Ophthalmology
DX: C69.50 Malignant neoplasm of unspecified lacrimal gland and duct (principal); I10 Essential (primary) hypertension
CPT/HCPCS: 70482; Q9967